=== PATIENT | female | born 1940 | race Caucasian/White ===

== ENCOUNTER 2016-09-28 09:39 | Inpatient (IN) ==
[2016-09-28] MEDS ORDERED: DIPHENOXYLATE/ATROPINE 2.5-0.025 MG TABLET PO STA (10:49)
[2016-09-28] MEDS ORDERED: SODIUM CHLORIDE 0.9% 1,000 ML IV STA (10:49)
[2016-09-28] MEDS ORDERED: PROMETHAZINE 25 MG/1 ML VIAL IM STA (10:54)
--- NOTE | 2016-09-28 11:01 | Emergency Department Note ---
Arrival - Arrival Chief Complaint: Nausea/Vomiting/Diarrhea Stated Complaint: upset stomach,diarrhea,elev BP ED Nursing Triage Note: Pt c/o nausea, vomiting, diarrhea, and abd pain x 1 wk. Mode of Arrival: Wheelchair Limitations: No Limitations Source: Patient, Family, RN Notes Reviewed Time Seen by Provider: 09/28/16 10:17 - History of Present Illness HPI Narrative: - History of Present Illness 76-year-old white female presents to ED with: MD Complaint: Nausea, vomiting, diarrhea, and abdominal pain Onset (ago): 1 week Consistency: Intermittent Location: Left lower quadrant Radiation:[ none] Improves with: N.p.o. Worsens with: Eating and drinking Context: Previous surgery to remove cancer from stomach, partial gastrectomy Associated Symp: Decreased urine output, not keeping down fluids Treatments prior to arrival: None Daughter states they are trying to get patient admitted to the hospital for 3 day stay, in order to have patient admitted to jail. PCP: Dr. Brooks, Dr. 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 PMHx: Hypertension, gastrointestinal cancer, cholecystectomy, EGD, renal failure Allergies/Adverse Reactions: Allergies Allergy/AdvReac Type Severity Reaction Status Date / Time Cortisone Allergy Severe ANAPHYLAXIS Verified 12/18/14 10:16 meperidine [From Demerol] AdvReac Unknown Nausea Verified 05/24/15 14:54 morphine AdvReac Unknown Nausea Verified 12/18/14 10:14 prochlorperazine AdvReac Unknown NUMBNESS Verified 12/18/14 10:17 [From Compazine] Home Medications: Home Medications Medication Instructions Recorded Confirmed Type Famotidine Tab [Pepcid Tab] 40 mg PO BEDTIME 08/17/16 09/29/16 History Gabapentin 300 mg PO DAILY W/LUNCH 08/17/16 09/29/16 History Gabapentin 600 mg PO BID 08/17/16 09/29/16 History Lisinopril/Hydrochlorothiazide 1 each PO DAILY 09/29/16 09/29/16 History [Lisinopril-Hctz 10-12.5 mg Tab] Lubiprostone [Amitiza] 8 mcg PO BID W/MEALS 09/29/16 09/29/16 History Pantoprazole Tab [Protonix Tab] 40 mg PO DAILY 09/29/16 09/29/16 History Potassium Chloride 16 meq PO DAILY 09/29/16 09/29/16 History amLODIPine [Norvasc] 2.5 mg PO DAILY 09/29/16 09/29/16 History clonazePAM [Clonazepam] 1 mg PO BID 09/29/16 09/29/16 History Review of System - Review of System 12 point system: reviewed and no additional remarkable complaints except as stated - Review of System Gastrointestinal: Present: abdominal pain, nausea, vomiting, diarrhea Medical,Surgical,& Family Hx - Medical History Cardio: History of: Hypertension Respiratory: History of: Pneumonia Genitourinary: History of: Recurring Urinary Tract Infections Gastrointestinal: History of: Gastrointestinal Cancer Other: History of: Cancer (hx colon ca (remission x 5 years)) - Surgical History Abdominal Surgeries: Surgical HX of: Appendectomy, Cholecystectomy, EGD - Social History Smoking Status: Former smoker Exam Physical Examination: - General General appearance: alert, in no apparent distress - Head Head exam: Present: atraumatic, normocephalic, normal inspection - Eye Eye exam: Present: normal appearance, PERRL, EOMI - Neck Neck exam: Present: normal inspection, full ROM - Chest Chest inspection: Present: normal inspection, symmetric chest wall rise - Respiratory Respiratory exam: Present: normal lung sounds bilaterally - Cardiovascular Cardiovascular exam: Present: regular rate, normal rhythm, normal heart sounds - Abdominal Exam Abdominal exam: Present: soft, tenderness (LLQ, mild), normal bowel sounds. Absent: distention, guarding, organomegaly, trauma, psoas sign, heel tap sign, Strong's sign, mass - Rectal Exam Rectal exam: Present: deferred - Female exam ED: Present: deferred - Extremities Exam Extremities exam: Present: normal inspection, full ROM. Absent: pedal edema, joint swelling, calf tenderness - Back Exam Back exam: Present: normal inspection, full ROM - Neurological Exam Neurological exam: Present: alert, oriented X3, normal gait - Psychiatric Psychiatric exam: Present: normal affect, normal mood - Skin Skin exam: Present: warm, dry, intact Vital Signs: Vital Signs Temperature 98.4 F 09/29/16 16:00 Pulse Rate 63 09/29/16 16:00 Respiratory Rate 20 09/29/16 16:00 Blood Pressure 149/70 09/29/16 16:00 O2 Sat by Pulse Oximetry 98 09/29/16 16:00 Course Course Narrative: 12;55, Terri with Hospitalist service here to evaluate patient. Will admit. - Consultations Consultation #1: 12:55: Hopsitalist service here to evaluate patient. Will admit. Time: 12:20 (Hospitalist service called (debra) to notify of pt presence and assessment for admission.) Results - Labs CBC & BMP: 09/29/16 04:20 09/29/16 04:20 Lab Results: I have reviewed the patients labs Labs: Laboratory Tests 09/28/16 09/28/16 11:29 11:29 Calcium 6.6 L Magnesium 1.2 L Total Bilirubin < 0.39 AST 19 ALT 16 Alkaline Phosphatase 75 Amylase 36 Lipase 50.0 L Laboratory Tests 09/28/16 11:35 Urine Color Yellow Urine Appearance Clear Urine pH 5.0 Ur Specific [place] 1.006 Urine Protein 100 Urine Glucose (UA) Negative Urine Ketones 5 Urine Blood Small Urine Nitrate Negative Urine Bilirubin Negative Urine Urobilinogen < 2.0 H Urine Leukocytes Negative Urine RBC <1 Urine WBC 2 Ur Squamous Epith Cells Occasional Urine Bacteria Occasional Urine Mucus Occasional Ur Culture Indicated? Not indicated - Diagnostic Findings Procedure: Ultrasound: report reviewed by me (Moderate right-sided hydronephrosis of uncertain etiology. Consider ureteral obstruction. No definite radiopaque renal or ureteral stone was noted on the comparison Ct from August of this year. ) Disposition Clinical Impression: Nausea and vomiting, Hypokalemia, Hypomagnesemia, Neutropenia, Mild dehydration , Renal insufficiency Case discussed with: patient, patient's family Disposition: Still a Patient Condition: Guarded
[2016-09-28] MEDS ORDERED: PROMETHAZINE 25 MG/1 ML VIAL ONE (11:11)
[2016-09-28 11:37] LABS: Basophils % 0.3 % (0.0-0.8); Eosinophils % 0.3 % (0.00-10.9); Hematocrit 35.8 VOL% (35.7-47.0); Hemoglobin 12.2 GM/DL (12.0-16.0); Immature Granulocytes % 0.3 %; Immature Granulocytes Absolute 0.01 #; Lymphocytes % 28.2 % (21.3-54.2); Mean Corpuscular HGB Conc 34.1 GM/DL (32-36); Mean Corpuscular Hemoglobin 32 PG (27-34); Mean Corpuscular Volume 94.5 FL (87-102); Mean Platelet Volume 8.3 FL (9.6-12.0); Monocytes # 0.3 10*3/uL (0.11-0.8); Monocytes % 7.6 % (1.7-12.7); Neutrophils # 2.2 10*3/uL (1.4-7.4); Neutrophils % 63.3 % (38.7-73.9); Platelet Count 178 T/CUMM (130-400); Red Blood Count 3.79 MC/CUMM (3.8-5.5); Red Cell Distribution Width 13.5 % (9.3-17.3); White Blood Count 3.4 T/CUMM (4-12)
[2016-09-28 11:48] LABS: Apearance,Urine CLEAR (Clear); Bacteria,Urine Occasional /HPF (Few); Bilirubin,Urine Negative (Negative); Blood, Urine Small mg/dL (Negative); Glucose,Urine (UA) Negative (Negative); Ketones,Urine 5 mg/dL (Negative); Mucus,Urine Occasional /LPF (Occasional); Nitrite,Urine Negative (Negative); Protein,Urine 100 MG/DL; RBC,Urine <1 /HPF (0-4); Squamous Epithelial Cell,Urine Occasional /HPF (0-10); Urine Color Yellow (Yellow); Urine Specific Gravity 1.006 (1.001-1.035); Urine Urobilinogen < 2.0 EU/DL (0.2-1.0); WBC,Urine 2 /HPF (0-6)
[2016-09-28 12:14] LABS: Alanine Aminotransferase 16 U/L (13-56); Albumin 2.3 G/DL (3.4-5.0); Alkaline Phosphatase 75 U/L (45-117); Amylase 36 U/L (25-115); Aspartate Amino Transferase 19 U/L (0-37); Bilirubin,Total < 0.39 MG/DL (0.2-1.0); Blood Urea Nitrogen 6 MG/DL (7-18); Calcium 6.6 MG/DL (8.5-10.1); Glucose 68 MG/DL (74-106); Osmolality,Calculated 283.7 MOS/KG (273-304); Sodium 145 MMOL/L (136-145); Total Protein 4.6 G/DL (6.4-8.3)
--- NOTE | 2016-09-28 12:14 | Ultrasound Report ---
History: Nausea and vomiting Date: 09/28/2016 Study: Abdominal ultrasound complete Comparison exam: Noncontrast CT abdomen and pelvis August 17, 2016 Real-time ultrasound images are captured and archived. The gallbladder is surgically absent. There is no aneurysm of the abdominal aorta. There is mild scattered atherosclerotic irregularity of the aorta. IVC is patent. There is hepatopedal flow in the portal vein. There are mildly increased echoes throughout the hepatic parenchyma compatible with fatty infiltration of the liver. There is no focal hepatic mass. The pancreas is normal. The left kidney measures 9.2 cm in length and appears normal. The right kidney measures 8.7 cm and is without focal parenchymal mass. There is moderate right-sided hydronephrosis of uncertain etiology. The spleen measures 84 x 47 x 54 mm and is without focal mass. Impression: Moderate right-sided hydronephrosis of uncertain etiology. Consider ureteral obstruction. No definite radiopaque renal or ureteral stone was noted on the comparison CT from August of this year Previous cholecystectomy Fatty infiltration of the liver PROCEDURE INTERPRETED AT [facility] DEPARTMENT OF RADIOLOGY Final Report Signed by: Dr. Bety Ochoa
[2016-09-28 12:16] LABS: Potassium 2.5 MMOL/L (3.5-5.1)
[2016-09-28] MEDS ORDERED: MAGNESIUM SULF RIDER 4 GM in PREMIX 1 EACH IV PRN (13:05)
--- NOTE | 2016-09-28 13:11 | Hospitalist History & Physical ---
Assessment and Plan (1) Nausea and vomiting Status: Acute Assessment and plan: We will keep NPO, hydrate, antiemetics as needed. Current Visit: No (2) Renal insufficiency Status: Acute Assessment and plan: This is likely secondary to volume depletion; we will hydrate and reassess in AM. Current Visit: No (3) Mild dehydration Status: Acute Current Visit: No (4) Hypokalemia Status: Acute Assessment and plan: Potassium 2.5 at admission; likely related to volume depletion secondary to nausea and vomiting; will correct and re-check in AM. Current Visit: No (5) Hypomagnesemia Status: Acute Assessment and plan: Will replace as needed. Current Visit: No (6) Gastric malignant neoplasm Status: Acute Assessment and plan: The patient is a poor historian. Family is at bedside; they report they she is followed by Dr. Brooks. We will consult to assist in the management during the clinical encounter. Current Visit: No (7) Neutropenia Status: Acute Assessment and plan: WBC 3.4 at admission; not sure of her baseline. We will consult oncology to evaluate and manage. Current Visit: Yes History of Present Illness Chief complaint: nausea/vomiting/abdominal pain x1 week History of present illness: This is a very unfortunate 76 year old woman that presented to the [facility] at [facility] with a chief compliant of nausea, vomiting, diarrhea, and abdominal pain x 1 week. The patient has a very complex medical history significant for hypertension and malignant carcinoma of the stomach. She has a surgical history of cholecystectomy, hysterectomy, partial gastrectomy, and appendectomy. She reports an onset of the above symptoms on last week with gradual worsening of symptoms. The patient was assessed and labs were obtained. She was found to he grossly hypokalemic with a potassium level noted at 2.5. She was also found to be neutropenic with a white blood cell count noted 3.4. An ultrasound of the abdomen was obtained which suggested moderate right sided hydronephrosis, with etiology unknown and that a urethral obstruction should be considered. After discussion with JUAN ALBERTO Wright and Dr. Boles, the patient will be admitted for continuation of care. We will consult Dr. Brooks, patient is known to him. Home Medications Medication Instructions Recorded Confirmed Type Famotidine Tab [Pepcid Tab] 40 mg PO BEDTIME 08/17/16 08/18/16 History Gabapentin 300 mg PO BEDTIME 08/17/16 08/18/16 History Gabapentin 600 mg PO QAM 08/17/16 08/18/16 History Azithromycin Inj [Zithromax Inj] 500 mg PO Q24H #3 vial 08/19/16 Rx Magnesium Chloride [Slow Mag] 64 mg PO BID tablet 08/19/16 Rx Allergies Allergy/AdvReac Type Severity Reaction Status Date / Time Cortisone Allergy Severe ANAPHYLAXIS Verified 12/18/14 10:16 meperidine [From Demerol] AdvReac Unknown Nausea Verified 05/24/15 14:54 morphine AdvReac Unknown Nausea Verified 12/18/14 10:14 prochlorperazine AdvReac Unknown NUMBNESS Verified 12/18/14 10:17 [From Compazine] Medical,Surgical,& Family Hx - Medical History Cardio: History of: Hypertension Respiratory: History of: Pneumonia Genitourinary: History of: Recurring Urinary Tract Infections Gastrointestinal: History of: Gastrointestinal Cancer Other: History of: Cancer (hx colon ca (remission x 5 years)) - Surgical History Cardiac Surgeries: Patient Denies: Cardiac Catheterization Abdominal Surgeries: Surgical HX of: Appendectomy, Cholecystectomy, EGD Orthopedic Surgeries: Patient denies;: Orthopedic Surgery - Social History Smoking Status: Former smoker - Constitutional Constitutional: Absent: chills, lethargy, malaise, night sweats - Gastrointestinal Gastrointestinal: Present: abdominal pain, cramping, diarrhea, nausea, vomiting Exam - Constitutional Vitals: Period Temp Pulse Resp BP Sys/Franklin Pulse Ox Last 24 Hr 98.2 F 66-83 18-18 125-143/74-83 98 General appearance: normal weight, mild distress - Head Head exam: Present: normal inspection, normocephalic, atraumatic - Eye Eye exam: Present: EOMI. Absent: conjunctival injection, nystagmus Pupils: Present: DENIZ, normal accommodation - ENT ENT exam: Present: normal exam, normal external ear exam, normal oropharynx - Neck Neck exam: Present: normal inspection. Absent: lymphadenopathy, meningismus, tenderness, thyromegaly - Respiratory Respiratory exam: Present: clear to auscultation bilaterally. Absent: rales, rhonchi, stridor, wheezes - Cardiovascular Cardiovascular exam: Present: regular rate and rhythm. Absent: carotid bruit, diastolic murmur, gallop, JVD, rubs - GI/Abdominal GI/Abdominal exam: Present: hypoactive bowel sounds, tenderness (LLQ tenderness) , soft, other. Absent: distended, firm, guarding - Extremities Exam Extremities exam: Present: normal inspection, normal capillary refill, full ROM. Absent: edema - Back Exam Back exam: Present: normal inspection - Neurological Exam Neurological exam: Present: alert, oriented X3, CN II-XII intact - Psychiatric Psychiatric exam: Present: normal affect, normal mood - Skin Skin exam: Present: normal color, pallor Results - Labs CBC & BMP: 09/28/16 11:29 09/28/16 11:29 Lab Results: I have reviewed the past 24 hour labs Quality Measures - VTE Deep Vein Thrombosis/Pulmonary Embolism Present on Admission: No
[2016-09-28] MEDS: SODIUM CHLORIDE 0.9% 1,000 ML IV SCH (14:07)
[2016-09-28] MEDS: ONDANSETRON 4 MG/2 ML VIAL IV PRN (15:28)
[2016-09-28] MEDS: metroNIDAZOLE INJ 500 MG in PREMIX 1 EACH IV SCH ×3 (15:30→22:53)
[2016-09-28] MEDS: POTASSIUM CHLORIDE RIDER 10 MEQ in PREMIX 1 EACH IV PRN ×5 (16:33→22:41)
[2016-09-28] MEDS: PROMETHAZINE 25 MG/1 ML VIAL IM PRN (21:56)
[2016-09-28] MEDS: MAGNESIUM SULF RIDER 2 GM in PREMIX 1 EACH IV PRN (22:09)
[2016-09-29] MEDS: POTASSIUM CHLORIDE RIDER 10 MEQ in PREMIX 1 EACH IV PRN (00:11)
[2016-09-29] MEDS: MAGNESIUM SULF RIDER 2 GM in PREMIX 1 EACH IV PRN (00:13)
[2016-09-29] MEDS: SODIUM CHLORIDE 0.9% 1,000 ML IV SCH (00:18)
[2016-09-29] MEDS: metroNIDAZOLE INJ 500 MG in PREMIX 1 EACH IV SCH ×4 (04:14→21:59)
[2016-09-29 04:36] LABS: Basophils % 0.4 % (0.0-0.8); Eosinophils % 1.1 % (0.00-10.9); Hematocrit 31.4 VOL% (35.7-47.0); Hemoglobin 10.9 GM/DL (12.0-16.0); Lymphocytes % 35.6 % (21.3-54.2); Mean Corpuscular HGB Conc 34.7 GM/DL (32-36); Mean Corpuscular Hemoglobin 34 PG (27-34); Mean Corpuscular Volume 97.5 FL (87-102); Mean Platelet Volume 8.9 FL (9.6-12.0); Monocytes # 0.3 10*3/uL (0.11-0.8); Monocytes % 9.4 % (1.7-12.7); Neutrophils # 1.5 10*3/uL (1.4-7.4); Neutrophils % 53.5 % (38.7-73.9); Platelet Count 140 T/CUMM (130-400); Red Blood Count 3.22 MC/CUMM (3.8-5.5); Red Cell Distribution Width 14.3 % (9.3-17.3); White Blood Count 2.8 T/CUMM (4-12)
[2016-09-29 05:11] LABS: Alanine Aminotransferase 14 U/L (13-56); Albumin 2.3 G/DL (3.4-5.0); Alkaline Phosphatase 76 U/L (45-117); Aspartate Amino Transferase 18 U/L (0-37); Bilirubin,Total < 0.39 MG/DL (0.2-1.0); Blood Urea Nitrogen 6 MG/DL (7-18); Calcium 7.4 MG/DL (8.5-10.1); Glucose 60 MG/DL (74-106); Magnesium 3.1 MG/DL (1.8-2.4); Osmolality,Calculated 283.7 MOS/KG (273-304); Potassium 4.2 MMOL/L (3.5-5.1); Sodium 145 MMOL/L (136-145); Total Protein 4.5 G/DL (6.4-8.3)
[2016-09-29] MEDS: DEXTROSE 5% NACL 0.45% 1,000 ML IV SCH ×2 (06:00→18:53)
[2016-09-29] MEDS: PANTOPRAZOLE 40 MG VIAL IV SCH (08:47)
[2016-09-29] MEDS: PROMETHAZINE 25 MG/1 ML VIAL IM PRN ×3 (09:10→22:04)
--- NOTE | 2016-09-29 13:54 | Hospitalist Progress Note ---
Assessment and Plan - Time spent with patient Time spent with patient: Greater than 30 minutes (1) Nausea Status: Acute Assessment and plan: Will consult GI. Current Visit: Yes (2) Gastric malignant neoplasm Status: Acute Assessment and plan: Hsitory of. Seen by Oncology and follow up scans have been negative for recurrence. Current Visit: No Hospitalist: Subjective Interval history: Ms Torres reports regurgitation of her food and persistent nausea, no vomiting. Exam - Constitutional Vitals: Period Temp Pulse Resp BP Sys/Franklin Pulse Ox Last 24 Hr 97.3 F-98.7 F 55-88 16-20 105-147/59-73 97-99 General appearance: no acute distress - Head Head exam: Present: normocephalic, atraumatic - Eye Eye exam: Present: EOMI Pupils: Present: DENIZ - ENT ENT exam: Present: normal exam - Neck Neck exam: Present: normal inspection - Respiratory Respiratory exam: Present: clear to auscultation bilaterally. Absent: rhonchi, wheezes - Cardiovascular Cardiovascular exam: Present: regular rate and rhythm. Absent: gallop, rubs, systolic murmur - GI/Abdominal GI/Abdominal exam: Present: normal bowel sounds, soft. Absent: distended, firm , guarding, tenderness, rebound - Extremities Exam Extremities exam: Present: normal inspection. Absent: calf tenderness, edema Results - Labs CBC & BMP: 09/29/16 04:20 09/29/16 04:20 Lab Results: I have reviewed the past 24 hour labs Quality Measures - VTE Deep Vein Thrombosis/Pulmonary Embolism Present on Admission: No
[2016-09-29] MEDS: ONDANSETRON 4 MG/2 ML VIAL IV PRN (14:47)
--- NOTE | 2016-09-29 14:51 | Gastrointestinal Consult Note ---
Assessment and Plan (1) Nausea and vomiting Status: Acute Assessment and plan: 16-10 day history of intractable nausea and vomiting with history of gastric cancer and partial gastrectomy in 2011. Hx of cyclic episodes of N/V with this being most severe. US results noted. Last EGD 10/2015. Plan and addendum to follow by Dr Ochoa Current Visit: No History of Present Illness Chief complaint: Nausea and vomiting History of present illness: Ms. Torres is a 76 year old female was admitted to the hospital with onset of nausea, vomiting, diarrhea and abdominal pain. Pt is a fair historian and has difficulty recalling details however information is obtained from patient and chart review. Pt has a history of gastric cancer which was diagnosed in 2011 and was surgically resected at [place] per patient. She then transferred her care here to [place] and is now followed by Dr Brooks. Since her surgery, she has cyclic episodes of nausea and vomiting. She states she never knows what will bring it on and nothing seems to help this. She has had multiple episodes of this in the past and states that most of these she can treat at home however this was the most severe she has had before. Patient states that this began approximately a week and a half ago and has had intractable nausea and vomiting since onset. She states that she has not been able to eat anything but 1 or 2 crackers and sips of Sprite at a time since onset. She states that she has had multiple episodes of vomiting as well as regurgitation throughout the day and night. She also complains of some left lower quadrant abdominal pain which she states is new. She states that the nausea and vomiting feels the same as episodes in the past but just more severe. She states she has not had the LLQ pain in the past. Patient states that she has had some diarrhea since onset however she does have varying episodes of this at times along with chronic constipation. She denies any melena or hematochezia. Denies any coffee-ground or hematemesis. She denies any changes in her weight, fever or chills. She has recently had a follow-up with Dr. Brooks in the last 6 weeks and to this date has been cancer free. On admission she was noted to be hypokalemic with potassium of 2.5 which is now corrected. Albumin is 2.3 and total protein is 4.5. She had an abdominal ultrasound on admission which showed fatty infiltration of the liver with no focal masses seen. Also noted a moderate right-sided hydronephrosis. Last EGD noted in October 2015 with no acute findings by Dr Rojo (correctional case records supervisor for Dr Ochoa). Patient states that she feels she is no longer able to care for herself at home and at this time family is considering detention placement upon discharge. Home Medications Medication Instructions Recorded Confirmed Type Famotidine Tab [Pepcid Tab] 40 mg PO BEDTIME 08/17/16 09/29/16 History Gabapentin 300 mg PO DAILY W/LUNCH 08/17/16 09/29/16 History Gabapentin 600 mg PO BID 08/17/16 09/29/16 History Lisinopril/Hydrochlorothiazide 1 each PO DAILY 09/29/16 09/29/16 History [Lisinopril-Hctz 10-12.5 mg Tab] Lubiprostone [Amitiza] 8 mcg PO BID W/MEALS 09/29/16 09/29/16 History Pantoprazole Tab [Protonix Tab] 40 mg PO DAILY 09/29/16 09/29/16 History Potassium Chloride 16 meq PO DAILY 09/29/16 09/29/16 History amLODIPine [Norvasc] 2.5 mg PO DAILY 09/29/16 09/29/16 History clonazePAM [Clonazepam] 1 mg PO BID 09/29/16 09/29/16 History Allergies Allergy/AdvReac Type Severity Reaction Status Date / Time Cortisone Allergy Severe ANAPHYLAXIS Verified 12/18/14 10:16 meperidine [From Demerol] AdvReac Unknown Nausea Verified 05/24/15 14:54 morphine AdvReac Unknown Nausea Verified 12/18/14 10:14 prochlorperazine AdvReac Unknown NUMBNESS Verified 12/18/14 10:17 [From Compazine] Medical,Surgical,& Family Hx - Medical History Cardio: History of: Hypertension Psychological: History of: Anxiety Disorders, Depression Respiratory: History of: Pneumonia Genitourinary: History of: Recurring Urinary Tract Infections Gastrointestinal: History of: Gastrointestinal Cancer Other: History of: Cancer (hx colon ca (remission x 5 years)) - Surgical History Cardiac Surgeries: Patient Denies: Cardiac Catheterization HEENT Surgeries: Surgical HX of: Tonsilectomy & Adenoidectomy Abdominal Surgeries: Surgical HX of: Appendectomy, Cholecystectomy, EGD Orthopedic Surgeries: Patient denies;: Orthopedic Surgery - Family History Family History: Reports;: Family Cancer (father had brain CA, aunts ?), Family Hypertension (Mother) - Social History Smoking Status: Former smoker Frequency of Alcohol Use: None Type of Drug Use: None 12 point system: reviewed and no additional remarkable complaints except as stated - Constitutional Constitutional: Present: as per HPI - EENT Eyes: Present: as per HPI Ears: Present: as per HPI Nose, mouth and throat: Present: as per HPI - Cardiovascular Cardiovascular: Present: as per HPI - Respiratory Respiratory: Present: as per HPI - Gastrointestinal Gastrointestinal: Present: as per HPI, abdominal pain, constipation, diarrhea, nausea, vomiting - Genitourinary Genitourinary: Present: as per HPI - Musculoskeletal Musculoskeletal: Present: as per HPI - Neurological Neurological: Present: as per HPI - Psychiatric Psychiatric: Present: as per HPI - Endocrine Endocrine: Present: as per HPI - Hematologic/Lymphatic Hematologic/Lymphatic: Present: as per HPI Exam - Constitutional Vitals: Period Temp Pulse Resp BP Sys/Franklin Pulse Ox Last 24 Hr 97.3 F-98.7 F 55-88 16-20 105-137/59-73 97-99 General appearance: no acute distress, under weight - Head Head exam: Present: normal inspection, normocephalic - Eye Eye exam: Present: other (lids and conjunctiva unremarkable). Absent: scleral icterus - ENT ENT exam: Present: normal exam, normal oropharynx - Neck Neck exam: Present: normal inspection - Respiratory Respiratory exam: Present: clear to auscultation bilaterally. Absent: rales, rhonchi, wheezes - Cardiovascular Cardiovascular exam: Present: regular rate and rhythm. Absent: diastolic murmur , JVD, systolic murmur - GI/Abdominal GI/Abdominal exam: Present: normal bowel sounds, soft. Absent: ascites, distended, mass, organomegaly, tenderness - Extremities Exam Extremities exam: Present: normal inspection, full ROM - Back Exam Back exam: Present: normal inspection - Neurological Exam Neurological exam: Present: alert, oriented X3 - Psychiatric Psychiatric exam: Present: normal affect, normal mood - Skin Skin exam: Present: normal color, warm, dry Results - Labs CBC & BMP: 09/29/16 04:20 09/29/16 04:20 Lab Results: I have reviewed the past 24 hour labs - Diagnostic Findings Procedure: Ultrasound: report reviewed by me Quality Measures - VTE Deep Vein Thrombosis/Pulmonary Embolism Present on Admission: No
--- NOTE | 2016-09-29 15:18 | Case Mgmt Physician Query Form ---
TB Signs and Symptoms Screening ([place]) INSTRUCTIONS: To be completed annually on residents/staff with a significant Tuberculin Skin Test (TST) upon admission/hire or a prior significant TST. To be completed on all staff at hire. Please respond to each listed symptom with an (X) in either the "YES" or "NO" box. Do you currently have any of the following symptoms: YES NO ( ) ( x) A cough If yes, is it: ( ) Productive ( ) Non- productive ( ) (x ) Hemoptysis (spitting up blood) ( ) (x ) Chest pains ( ) ( x) Weight Loss ( ) (x ) Fever ( ) (x ) Night Sweats ( ) (x ) Weakness ( ) (x) Loss of Appetite ( ) (x ) Difficulty Breathing If you answered YES" to any of the above questions, how long have symptoms been present? Comments: [email or web address]
[2016-09-30] MEDS: metroNIDAZOLE INJ 500 MG in PREMIX 1 EACH IV SCH ×4 (03:35→21:21)
[2016-09-30] MEDS: DEXTROSE 5% NACL 0.45% 1,000 ML IV SCH ×3 (03:35→17:47)
[2016-09-30 07:37] LABS: Calcium 7.9 MG/DL (8.5-10.1); Magnesium 1.9 MG/DL (1.8-2.4); Osmolality,Calculated 287.7 MOS/KG (273-304); Potassium 3.6 MMOL/L (3.5-5.1)
[2016-09-30] MEDS ORDERED: TUBERCULIN SKIN TEST 0.1 ML SYRINGE INTRADERM ONE ×2 (07:49→10:00)
--- NOTE | 2016-09-30 08:21 | Oncology Progress Note ---
Oncology Subjective PN Interval history: Patient seen and examined yesterday and case discussed with hospitalist attending. Recommendations are for EGD given her symptoms of nausea vomiting which are not acute. Gastric cancer 2013 with partial gastrectomy. I believe this was performed in [facility]. I have followed her with observation only for several years. I am unaware of any recent EGDs. She did have a CT of the chest abdomen pelvis 2 months ago with no obvious malignancy noted. Exam - Constitutional Vitals: Period Temp Pulse Resp BP Sys/Franklin Pulse Ox Last 24 Hr 97.8 F-98.7 F 63-74 18-20 126-149/67-73 97-99 Results - Labs CBC & BMP: 09/29/16 04:20 09/30/16 06:24 Quality Measures - VTE Deep Vein Thrombosis/Pulmonary Embolism Present on Admission: No
[2016-09-30] MEDS: PANTOPRAZOLE 40 MG VIAL IV SCH (09:04)
--- NOTE | 2016-09-30 10:25 | Hospitalist Progress Note ---
Assessment and Plan - Time spent with patient Time spent with patient: Greater than 30 minutes (1) Nausea Status: Acute Assessment and plan: Endoscopy today. Current Visit: Yes (2) Gastric malignant neoplasm Status: Acute Assessment and plan: Hsitory of. Seen by Oncology and follow up scans have been negative for recurrence. Current Visit: No Hospitalist: Subjective Interval history: No complaints this morning. Scheduled for an endoscopy. Exam - Constitutional Vitals: Period Temp Pulse Resp BP Sys/Franklin Pulse Ox Last 24 Hr 97.8 F-98.7 F 63-74 18-20 126-162/67-86 97-99 General appearance: normal weight, no acute distress - Head Head exam: Present: normocephalic, atraumatic - Eye Eye exam: Present: EOMI Pupils: Present: DENIZ - ENT ENT exam: Present: normal exam - Neck Neck exam: Present: normal inspection - Respiratory Respiratory exam: Present: clear to auscultation bilaterally. Absent: rhonchi, wheezes - Cardiovascular Cardiovascular exam: Present: regular rate and rhythm. Absent: gallop, rubs, systolic murmur - GI/Abdominal GI/Abdominal exam: Present: normal bowel sounds, soft. Absent: distended, firm , guarding, tenderness, rebound - Extremities Exam Extremities exam: Present: normal inspection. Absent: calf tenderness, edema Results - Labs CBC & BMP: 09/29/16 04:20 09/30/16 06:24 Lab Results: I have reviewed the past 24 hour labs Quality Measures - VTE Deep Vein Thrombosis/Pulmonary Embolism Present on Admission: No
--- NOTE | 2016-09-30 13:13 | History and Physical Update ---
History and Physical Update - History and Physical H&P was reviewed, the patient examined and there: are no changes in the patients condition since last H&P was completed. - Physical Exam Mental Status: alert and oriented Heart: regular rate and rhythm Lung: clear to auscultation Abdomen: within normal limits Vitals: within normal limits
[2016-09-30] MEDS ORDERED: LIDOCAINE 1% 5 ML VIAL ONE (13:14)
[2016-09-30] MEDS ORDERED: PROPOFOL 200 MG/20 ML VIAL IV ONE (13:14)
--- NOTE | 2016-09-30 13:24 | Operative Note ---
Date of procedure: 09/30/16 Pre-op diagnosis: History of gastric cancer, recent increased nausea/vomiting Procedure: Procedure: Esophagogastroduodenoscopy Brief clinical abstract: Patient is a 76-year-old female with history of gastric cancer resected 5 years ago and has had no documented recurrence of disease. She has had chronic intermittent nausea/vomiting and is admitted with increased nausea/vomiting and weakness over the last few weeks. She has progressively lost weight gradually since her surgery. Indication for procedure: History of gastric cancer, persistent nausea/vomiting Endoscopic findings:[After informed consent was obtained, the patient was placed in the left lateral decubitus position. The gastroscope was inserted in the upper esophagus under direct vision with no resistance encountered. Esophageal mucosa appeared normal with squamocolumnar junction sharply demarcated above a small 1-2 cm hiatal hernia. The endoscope was advanced in the stomach which was carefully examined including retroflexed view of the cardia and fundus. 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 No abnormalities were noted within the residual stomach. Afferent and efferent limbs of small bowel were examined 10-15 cm beyond the anastomosis with no abnormality seen. The endoscope was removed. Patient appeared to tolerate the procedure well. Impression: #1 small hiatal hernia #2 previous partial gastrectomy with Billroth II anatomy #3 no source for nausea/vomiting seen. Recommendations: Check cortisol level in the morning to screen adrenal function. Anesthesia: MAC Surgeon / Physician: Eren Ochoa Estimated blood loss: none Specimens: none sent Condition: stable Disposition: post procedure unit Results - Labs CBC & BMP: 09/29/16 04:20 09/30/16 06:24 Discharge Plan - Discharge Medications No Action Famotidine Tab [Pepcid Tab] 40 mg PO BEDTIME Potassium Chloride 16 meq PO DAILY Lubiprostone [Amitiza] 8 mcg PO BID W/MEALS Lisinopril/Hydrochlorothiazide [Lisinopril-Hctz 10-12.5 mg Tab] 1 each PO DAILY clonazePAM [Clonazepam] 1 mg PO BID amLODIPine [Norvasc] 2.5 mg PO DAILY Pantoprazole Tab [Protonix Tab] 40 mg PO DAILY Gabapentin 600 mg PO BID Gabapentin 300 mg PO DAILY W/LUNCH - Follow Up or Referral - Forms/Instructions
--- NOTE | 2016-09-30 13:27 | Anesthesia Post-Op ---
Anesthesia Post OP - Post Ansesthetic Evaluation Patient seen in post op: Yes Resp: within normal limits CV: within normal limits Mental: within normal limits Temp: within normal limits Emer-[id number]-[id number]: within normal limits Nausea and Vomiting: within normal limits Pain: within normal limits
--- NOTE | 2016-09-30 14:34 | XRay Report ---
Exam: XR chest 2V Date: 09/30/2016 10:25 AM Indication: Abdominal pain Comparison: 08/18/2016 Findings:: A left subclavian port catheter is present. Chronic pleural thickening and scarring in the right base. Prior cholecystectomy clips are present. No obvious infiltrate or effusion. Degenerative change present thoracic spine with calcified nodes in the perihilar regions. Impression: 1. Stable position a left port catheter 2. Chronic pleural thickening and scarring right base 3. Prior cholecystectomy PROCEDURE INTERPRETED AT [facility] DEPARTMENT OF RADIOLOGY Final Report Signed by: Dr. Eren Burciaga
[2016-10-01] MEDS ORDERED: MORPHINE 2 MG/1 ML SYRINGE IV PRN (02:03)
[2016-10-01] MEDS: ONDANSETRON 4 MG/2 ML VIAL IV PRN (02:30)
[2016-10-01] MEDS: metroNIDAZOLE INJ 500 MG in PREMIX 1 EACH IV SCH ×4 (03:21→21:02)
[2016-10-01] MEDS: DEXTROSE 5% NACL 0.45% 1,000 ML IV SCH ×2 (06:00→18:15)
[2016-10-01] MEDS: PANTOPRAZOLE 40 MG VIAL IV SCH (09:06)
--- NOTE | 2016-10-01 10:54 | Gastrointestinal Progress Note ---
Assessment and Plan (1) Nausea and vomiting Status: Acute Assessment and plan: 10/01-nausea vomiting improved. EGD findings noted. Cortisol level unremarkable. Start clear liquid diet. Plan an addendum to follow Dr. Ochoa. 09/29-10 day history of intractable nausea and vomiting with history of gastric cancer and partial gastrectomy in 2011. Hx of cyclic episodes of N/V with this being most severe. US results noted. Last EGD 10/2015. Plan and addendum to follow by Dr Ochoa Current Visit: Yes Gastroenterology - PN: Subj Interval history: CC: Nausea and vomiting Patient is seen awake alert sitting up in bed. States she is feeling a little better this morning. She is currently being held n.p.o. however states she feels like she could try a little clear liquid diet. Denies any nausea or vomiting at this time. Denies any abdominal pain. EGD findings noted. Cortisol level was unremarkable this morning. Abdomen soft, mild tenderness. States she still has some soreness to her left lower quadrant but this is improved. Patient states upon discharge she is going to move to [facility] for jail placement there and she will be under the care of a physician who initially diagnosed her with gastric cancer 5 years ago. ROS: Patient denies shortness of breath or chest pain Exam (Progress Note) - Constitutional Vitals: Period Temp Pulse Resp BP Sys/Franklin Pulse Ox Last 24 Hr 98.2 F-99.1 F 68-79 17-24 132-157/72-93 96-100 General appearance: normal weight, no acute distress - Head Head exam: Present: normal inspection, normocephalic - Eye Eye exam: Present: other (Lids objective unremarkable). Absent: scleral icterus - ENT ENT exam: Present: normal exam, normal oropharynx - Neck Neck exam: Present: normal inspection - Respiratory Respiratory exam: Present: clear to auscultation bilaterally. Absent: rales, rhonchi, wheezes - Cardiovascular Cardiovascular exam: Present: regular rate and rhythm. Absent: diastolic murmur , JVD, systolic murmur - GI/Abdominal GI/Abdominal exam: Present: normal bowel sounds, soft. Absent: ascites, distended, mass, organomegaly, tenderness - Extremities Exam Extremities exam: Present: normal inspection, full ROM - Back Exam Back exam: Present: normal inspection - Neurological Exam Neurological exam: Present: alert, oriented X3 - Psychiatric Psychiatric exam: Present: normal affect, normal mood - Skin Skin exam: Present: normal color, warm, dry Results - Labs CBC & BMP: 09/29/16 04:20 09/30/16 06:24 Lab Results: I have reviewed the past 24 hour labs
[2016-10-01] MEDS ORDERED: amLODIPine 5 MG TABLET PO SCH (12:00)
[2016-10-01] MEDS: GABAPENTIN 300 MG CAPSULE PO SCH (12:34)
--- NOTE | 2016-10-01 13:16 | Hospitalist Progress Note ---
Assessment and Plan - Time spent with patient Time spent with patient: Greater than 30 minutes (1) Nausea Status: Acute Assessment and plan: Endoscopy unremarkable. Current Visit: Yes (2) Gastric malignant neoplasm Status: Acute Assessment and plan: No active issues. Current Visit: No Hospitalist: Subjective Interval history: No complaints or overnight events. Currently awaiting placement in a NH. Exam - Constitutional Vitals: Period Temp Pulse Resp BP Sys/Franklin Pulse Ox Last 24 Hr 98.2 F-99.1 F 68-79 17-24 132-157/72-92 96-100 General appearance: normal weight, no acute distress - Head Head exam: Present: normocephalic, atraumatic - Eye Eye exam: Present: EOMI Pupils: Present: DENIZ - ENT ENT exam: Present: normal exam - Neck Neck exam: Present: normal inspection - Respiratory Respiratory exam: Present: clear to auscultation bilaterally. Absent: rhonchi, wheezes - Cardiovascular Cardiovascular exam: Present: regular rate and rhythm. Absent: gallop, rubs, systolic murmur - GI/Abdominal GI/Abdominal exam: Present: normal bowel sounds, soft. Absent: distended, firm , guarding, tenderness, rebound - Extremities Exam Extremities exam: Present: normal inspection. Absent: calf tenderness, edema Results - Labs CBC & BMP: 09/29/16 04:20 09/30/16 06:24 Lab Results: I have reviewed the past 24 hour labs Quality Measures - VTE Deep Vein Thrombosis/Pulmonary Embolism Present on Admission: No
[2016-10-01] MEDS: amLODIPine 2.5 MG TABLET PO SCH (13:31)
[2016-10-01] MEDS: clonazePAM 0.5 MG TABLET PO SCH ×2 (14:15→21:02)
--- NOTE | 2016-10-01 14:22 | Physician Query Form ---
CLICK EDIT DOCUMENT TO SELECT QUERY ANSWER --> OK --> SIGN Edie Shen RN Clinical Program Support Clerk W) [phone] (f) [phone] [email or web address]: Make your selection(s) from the choices in EACH section by typing an "x" and enter comments in the comment section. Please use your independent medical judgment in providing your response. This request does not imply that any particular answer is desired or expected. 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 ( x) Malnutrition ( ) mild ( ) moderate (x ) severe ( ) Protein calorie malnutrition ( ) mild ( ) moderate ( ) severe ( ) Emaciation due to malnutrition ( ) Nutritional marasmus ( ) Cachexia ( ) No nutritional deficiency ( ) Other, please specify: ( ) Clinically unable to determine Mild Malnutrition (BMI < 18.5, % Normal Body Weight 85-95%) Moderate Malnutrition (BMI < 17, % Normal Body Weight 75-85%) Severe Malnutrition (BMI < 16, % Normal Body Weight < 75%) Source: [place] COMMENTS: PLEASE ALSO DOCUMENT RESPONSE IN PROGRESS NOTES AND/OR DISCHARGE SUMMARY Use of terms such as suspected, likely, or probable (associated with a specific diagnosis that is being evaluated, monitored, or treated as if it exists) are acceptable and can be restated in the discharge summary if not ruled out. MTDD
[2016-10-01] MEDS: POLYETHYLENE GLYCOL POWDER 17 GM PACK PO SCH (18:33)
[2016-10-01] MEDS: GABAPENTIN 600 MG TABLET PO SCH (21:02)
[2016-10-01] MEDS: HEPARIN LOCK FLUSH 500 UNIT/5 ML SYRINGE IV SCH (21:30)
[2016-10-01] MEDS: ACETAMINOPHEN 325 MG TABLET PO PRN (23:53)
[2016-10-02] MEDS: metroNIDAZOLE INJ 500 MG in PREMIX 1 EACH IV SCH ×3 (03:26→16:16)
[2016-10-02] MEDS: DEXTROSE 5% NACL 0.45% 1,000 ML IV SCH ×2 (06:39→16:17)
[2016-10-02] MEDS: PANTOPRAZOLE 40 MG VIAL IV SCH (08:10)
[2016-10-02] MEDS: amLODIPine 2.5 MG TABLET PO SCH (08:10)
[2016-10-02] MEDS: GABAPENTIN 600 MG TABLET PO SCH ×2 (08:10→22:01)
[2016-10-02] MEDS: clonazePAM 0.5 MG TABLET PO SCH ×2 (08:10→22:01)
[2016-10-02] MEDS: POLYETHYLENE GLYCOL POWDER 17 GM PACK PO SCH (08:10)
[2016-10-02 09:00] LABS: Calcium 7.2 MG/DL (8.5-10.1); Magnesium 1.2 MG/DL (1.8-2.4); Osmolality,Calculated 288.4 MOS/KG (273-304); Potassium 3.3 MMOL/L (3.5-5.1)
[2016-10-02] MEDS ORDERED: HEPARIN LOCK FLUSH 500 UNIT/5 ML SYRINGE IV PRN (10:04)
--- NOTE | 2016-10-02 10:22 | Gastrointestinal Progress Note ---
Assessment and Plan (1) Nausea and vomiting Status: Acute Assessment and plan: 10/02-no reports of nausea or vomiting. Denies abdominal pain. Reports diarrhea following ingestion of food. Requesting to advance to soft diet. Plan an addendum to followed by Dr. Ochoa. 10/01-nausea vomiting improved. EGD findings noted. Cortisol level unremarkable. Start clear liquid diet. Plan an addendum to follow Dr. Ochoa. 09/29-10 day history of intractable nausea and vomiting with history of gastric cancer and partial gastrectomy in 2011. Hx of cyclic episodes of N/V with this being most severe. US results noted. Last EGD 10/2015. Plan and addendum to follow by Dr Ochoa Current Visit: Yes Gastroenterology - PN: Subj Interval history: CC: Nausea vomiting Patient is seen awake alert sitting up in bed. States she is feeling even better today. He is tolerating clear liquid diet without any complaints of nausea vomiting at present time. She is complaining of some diarrhea shortly after she eats but she states that this is very tolerable at present time. Abdomen soft, nontender. She is requesting to advance her diet at this time is specifically requesting food items for lunch. ROS: Denies shortness of breath or chest pain Exam (Progress Note) - Constitutional Vitals: Period Temp Pulse Resp BP Sys/Franklin Pulse Ox Last 24 Hr 98.1 F-99.1 F 60-80 16-20 107-183/63-100 94-100 - Other Additional findings: General appearance: normal weight, no acute distress - Head Head exam: Present: normal inspection, normocephalic - Eye Eye exam: Present: other (Lids objective unremarkable). Absent: scleral icterus - ENT ENT exam: Present: normal exam, normal oropharynx - Neck Neck exam: Present: normal inspection - Respiratory Respiratory exam: Present: clear to auscultation bilaterally. Absent: rales, rhonchi, wheezes - Cardiovascular Cardiovascular exam: Present: regular rate and rhythm. Absent: diastolic murmur , JVD, systolic murmur - GI/Abdominal GI/Abdominal exam: Present: normal bowel sounds, soft. Absent: ascites, distended, mass, organomegaly, tenderness - Extremities Exam Extremities exam: Present: normal inspection, full ROM - Back Exam Back exam: Present: normal inspection - Neurological Exam Neurological exam: Present: alert, oriented X3 - Psychiatric Psychiatric exam: Present: normal affect, normal mood - Skin Skin exam: Present: normal color, warm, dry Results - Labs CBC & BMP: 09/29/16 04:20 10/02/16 07:50 Lab Results: I have reviewed the past 24 hour labs
[2016-10-02] MEDS: ACETAMINOPHEN 325 MG TABLET PO PRN (10:53)
[2016-10-02] MEDS: HEPARIN LOCK FLUSH 500 UNIT/5 ML SYRINGE IV SCH (10:53)
[2016-10-02] MEDS: POTASSIUM CHLORIDE RIDER 20 MEQ in PREMIX 1 EACH IV PRN ×4 (10:53→21:39)
[2016-10-02] MEDS: GABAPENTIN 300 MG CAPSULE PO SCH (11:22)
[2016-10-02] MEDS ORDERED: MAGNESIUM SULF RIDER 4 GM in PREMIX 1 EACH IV ONE (14:52)
--- NOTE | 2016-10-02 14:52 | Hospitalist Progress Note ---
Assessment and Plan - Time spent with patient Time spent with patient: Greater than 30 minutes (1) Nausea Status: Acute Assessment and plan: Endoscopy unremarkable. Improving. Current Visit: Yes (2) Gastric malignant neoplasm Status: Acute Assessment and plan: No active issues. Current Visit: No Hospitalist: Subjective Interval history: No complaints or overnight events; tolerating food. Exam - Constitutional Vitals: Period Temp Pulse Resp BP Sys/Franklin Pulse Ox Last 24 Hr 98.1 F-99.1 F 60-73 16-20 107-131/60-71 94-100 General appearance: no acute distress - Head Head exam: Present: normocephalic, atraumatic - Eye Eye exam: Present: EOMI Pupils: Present: DENIZ - ENT ENT exam: Present: normal exam - Neck Neck exam: Present: normal inspection - Respiratory Respiratory exam: Present: clear to auscultation bilaterally. Absent: rhonchi, wheezes - Cardiovascular Cardiovascular exam: Present: regular rate and rhythm. Absent: gallop, rubs, systolic murmur - GI/Abdominal GI/Abdominal exam: Present: normal bowel sounds, soft. Absent: distended, firm , guarding, tenderness, rebound - Extremities Exam Extremities exam: Present: normal inspection. Absent: calf tenderness, edema Results - Labs CBC & BMP: 09/29/16 04:20 10/02/16 07:50 Lab Results: I have reviewed the past 24 hour labs Quality Measures - VTE Deep Vein Thrombosis/Pulmonary Embolism Present on Admission: No
[2016-10-02] MEDS ORDERED: POTASSIUM CHLORIDE RIDER 10 MEQ in PREMIX 1 EACH IV SCH (15:00)
[2016-10-02] MEDS: MAGNESIUM SULF RIDER 2 GM in PREMIX 1 EACH IV PRN ×2 (17:14→21:39)
[2016-10-02] MEDS ORDERED: POTASSIUM CHLORIDE RIDER 10 MEQ in PREMIX 1 EACH IV PRN (21:07)
[2016-10-03] MEDS: metroNIDAZOLE INJ 500 MG in PREMIX 1 EACH IV SCH ×5 (01:43→20:29)
[2016-10-03 06:19] LABS: Basophils % 0.3 % (0.0-0.8); Eosinophils # 0.1 10*3/uL (0.0-0.87); Eosinophils % 2.8 % (0.00-10.9); Hematocrit 31.5 VOL% (35.7-47.0); Hemoglobin 10.1 GM/DL (12.0-16.0); Lymphocytes # 1.1 10*3/uL (1.4-4.0); Lymphocytes % 38.3 % (21.3-54.2); Mean Corpuscular HGB Conc 32.1 GM/DL (32-36); Mean Corpuscular Hemoglobin 32 PG (27-34); Mean Corpuscular Volume 99.1 FL (87-102); Mean Platelet Volume 9.4 FL (9.6-12.0); Monocytes # 0.3 10*3/uL (0.11-0.8); Monocytes % 10.1 % (1.7-12.7); Neutrophils # 1.4 10*3/uL (1.4-7.4); Neutrophils % 48.5 % (38.7-73.9); Platelet Count 115 T/CUMM (130-400); Red Blood Count 3.18 MC/CUMM (3.8-5.5); Red Cell Distribution Width 14.8 % (9.3-17.3); White Blood Count 2.9 T/CUMM (4-12)
[2016-10-03 07:03] LABS: Calcium 7.4 MG/DL (8.5-10.1); Magnesium 2.3 MG/DL (1.8-2.4); Osmolality,Calculated 290.3 MOS/KG (273-304); Potassium 3.7 MMOL/L (3.5-5.1)
[2016-10-03] MEDS: PANTOPRAZOLE 40 MG VIAL IV SCH (08:48)
[2016-10-03] MEDS: clonazePAM 0.5 MG TABLET PO SCH ×2 (08:55→20:27)
[2016-10-03] MEDS: HEPARIN LOCK FLUSH 500 UNIT/5 ML SYRINGE IV SCH ×2 (08:55→20:33)
[2016-10-03] MEDS: POLYETHYLENE GLYCOL POWDER 17 GM PACK PO SCH (08:56)
[2016-10-03] MEDS: GABAPENTIN 600 MG TABLET PO SCH ×2 (08:56→20:27)
[2016-10-03] MEDS: amLODIPine 2.5 MG TABLET PO SCH (08:56)
[2016-10-03] MEDS: GABAPENTIN 300 MG CAPSULE PO SCH (11:44)
[2016-10-03] MEDS: DEXTROSE 5% NACL 0.45% 1,000 ML IV SCH (14:34)
--- NOTE | 2016-10-03 16:46 | Hospitalist Progress Note ---
Assessment and Plan - Time spent with patient Time spent with patient: Greater than 30 minutes (1) Nausea Status: Acute Assessment and plan: Endoscopy unremarkable. Improving. Current Visit: Yes (2) Gastric malignant neoplasm Status: Acute Assessment and plan: No active issues. Current Visit: No Hospitalist: Subjective Interval history: No complaints, she endorses being stronger. Exam - Constitutional Vitals: Period Temp Pulse Resp BP Sys/Franklin Pulse Ox Last 24 Hr 97.6 F-98.3 F 68-77 18-20 113-141/63-75 95-99 General appearance: no acute distress - Head Head exam: Present: normocephalic, atraumatic - Eye Eye exam: Present: EOMI Pupils: Present: DENIZ - ENT ENT exam: Present: normal exam - Neck Neck exam: Present: normal inspection - Respiratory Respiratory exam: Present: clear to auscultation bilaterally. Absent: rhonchi, wheezes - Cardiovascular Cardiovascular exam: Present: regular rate and rhythm. Absent: gallop, rubs, systolic murmur - GI/Abdominal GI/Abdominal exam: Present: normal bowel sounds, soft. Absent: distended, firm , guarding, tenderness, rebound - Extremities Exam Extremities exam: Present: normal inspection. Absent: calf tenderness, edema Results - Labs CBC & BMP: 10/03/16 06:06 10/03/16 06:06 Lab Results: I have reviewed the past 24 hour labs Quality Measures - VTE Deep Vein Thrombosis/Pulmonary Embolism Present on Admission: No
[2016-10-03] MEDS: PROMETHAZINE 25 MG/1 ML VIAL IM PRN (18:10)
[2016-10-03] MEDS: ONDANSETRON 4 MG/2 ML VIAL IV PRN (20:17)
[2016-10-04] MEDS: PROMETHAZINE 25 MG/1 ML VIAL IM PRN ×2 (00:49→07:56)
[2016-10-04] MEDS: metroNIDAZOLE INJ 500 MG in PREMIX 1 EACH IV SCH ×4 (02:35→21:38)
[2016-10-04] MEDS: PANTOPRAZOLE 40 MG VIAL IV SCH (07:59)
[2016-10-04] MEDS: HEPARIN LOCK FLUSH 500 UNIT/5 ML SYRINGE IV SCH ×2 (08:05→21:38)
[2016-10-04] MEDS: clonazePAM 0.5 MG TABLET PO SCH ×2 (08:05→21:38)
[2016-10-04] MEDS: amLODIPine 2.5 MG TABLET PO SCH (08:06)
[2016-10-04] MEDS: GABAPENTIN 600 MG TABLET PO SCH ×2 (08:06→21:38)
[2016-10-04] MEDS: POLYETHYLENE GLYCOL POWDER 17 GM PACK PO SCH (08:06)
[2016-10-04] MEDS: DEXTROSE 5% NACL 0.45% 1,000 ML IV SCH ×3 (10:13→22:05)
[2016-10-04] MEDS: GABAPENTIN 300 MG CAPSULE PO SCH (11:47)
--- NOTE | 2016-10-04 12:22 | Hospitalist Progress Note ---
Assessment and Plan - Time spent with patient Time spent with patient: Greater than 30 minutes (1) Nausea Status: Acute Assessment and plan: Resolved. Current Visit: Yes (2) Gastric malignant neoplasm Status: Acute Assessment and plan: No active issues. Current Visit: No Hospitalist: Subjective Interval history: No complaints this morning. No overnight events. Exam - Constitutional Vitals: Period Temp Pulse Resp BP Sys/Franklin Pulse Ox Last 24 Hr 97.8 F-99.0 F 63-78 16-20 117-147/65-77 95-99 General appearance: no acute distress - Head Head exam: Present: normocephalic, atraumatic - Eye Eye exam: Present: EOMI Pupils: Present: DENIZ - ENT ENT exam: Present: normal exam - Neck Neck exam: Present: normal inspection - Respiratory Respiratory exam: Present: clear to auscultation bilaterally. Absent: rhonchi, wheezes - Cardiovascular Cardiovascular exam: Present: regular rate and rhythm. Absent: gallop, rubs, systolic murmur - GI/Abdominal GI/Abdominal exam: Present: normal bowel sounds, soft. Absent: distended, firm , guarding, tenderness, rebound - Extremities Exam Extremities exam: Present: normal inspection. Absent: calf tenderness, edema Results - Labs CBC & BMP: 10/03/16 06:06 10/03/16 06:06 Lab Results: I have reviewed the past 24 hour labs Quality Measures - VTE Deep Vein Thrombosis/Pulmonary Embolism Present on Admission: No
[2016-10-04] MEDS: ACETAMINOPHEN 325 MG TABLET PO PRN (13:54)
[2016-10-04] MEDS: LACTOBACILLUS ACIDOPHILUS/BULGARICUS CHEW TABLET PO SCH ×2 (16:41→21:38)
[2016-10-05] MEDS: metroNIDAZOLE INJ 500 MG in PREMIX 1 EACH IV SCH ×4 (04:15→20:51)
[2016-10-05 05:14] LABS: Osmolality,Calculated 292.3 MOS/KG (273-304); Potassium 3.4 MMOL/L (3.5-5.1)
[2016-10-05 05:26] LABS: Basophils % 0.3 % (0.0-0.8); Eosinophils # 0.1 10*3/uL (0.0-0.87); Eosinophils % 2.4 % (0.00-10.9); Hematocrit 31.6 VOL% (35.7-47.0); Hemoglobin 10.1 GM/DL (12.0-16.0); Lymphocytes # 1.2 10*3/uL (1.4-4.0); Lymphocytes % 31.8 % (21.3-54.2); Mean Corpuscular Hemoglobin 32 PG (27-34); Mean Corpuscular Volume 100.3 FL (87-102); Mean Platelet Volume 10.7 FL (9.6-12.0); Monocytes # 0.3 10*3/uL (0.11-0.8); Monocytes % 7.9 % (1.7-12.7); Neutrophils # 2.2 10*3/uL (1.4-7.4); Neutrophils % 57.6 % (38.7-73.9); Platelet Count 110 T/CUMM (130-400); Red Blood Count 3.15 MC/CUMM (3.8-5.5); Red Cell Distribution Width 15.3 % (9.3-17.3); White Blood Count 3.8 T/CUMM (4-12)
[2016-10-05] MEDS: GABAPENTIN 600 MG TABLET PO SCH ×2 (09:09→20:51)
[2016-10-05] MEDS: PANTOPRAZOLE 40 MG VIAL IV SCH (09:09)
[2016-10-05] MEDS: amLODIPine 2.5 MG TABLET PO SCH (09:09)
[2016-10-05] MEDS: HEPARIN LOCK FLUSH 500 UNIT/5 ML SYRINGE IV SCH ×2 (09:09→20:51)
[2016-10-05] MEDS: POLYETHYLENE GLYCOL POWDER 17 GM PACK PO SCH (09:09)
[2016-10-05] MEDS: clonazePAM 0.5 MG TABLET PO SCH ×2 (09:09→20:51)
[2016-10-05] MEDS: LACTOBACILLUS ACIDOPHILUS/BULGARICUS CHEW TABLET PO SCH ×2 (09:50→16:01)
[2016-10-05] MEDS: DEXTROSE 5% NACL 0.45% 1,000 ML IV SCH (11:00)
[2016-10-05] MEDS: ACETAMINOPHEN 325 MG TABLET PO PRN (12:07)
[2016-10-05] MEDS: GABAPENTIN 300 MG CAPSULE PO SCH (12:08)
--- NOTE | 2016-10-05 13:53 | Hospitalist Progress Note ---
Assessment and Plan - Time spent with patient Time spent with patient: Greater than 30 minutes (1) Nausea Status: Acute Assessment and plan: Resolved. Current Visit: Yes (2) Gastric malignant neoplasm Status: Acute Assessment and plan: No active issues. Current Visit: No Hospitalist: Subjective Interval history: No complaints or overnight events. Exam - Constitutional Vitals: Period Temp Pulse Resp BP Sys/Franklin Pulse Ox Last 24 Hr 97.8 F-98.9 F 66-70 18-20 100-125/58-70 92-99 General appearance: no acute distress - Head Head exam: Present: normocephalic, atraumatic - Eye Eye exam: Present: EOMI Pupils: Present: DENIZ - ENT ENT exam: Present: normal exam - Neck Neck exam: Present: normal inspection - Respiratory Respiratory exam: Present: clear to auscultation bilaterally. Absent: rhonchi, wheezes - Cardiovascular Cardiovascular exam: Present: regular rate and rhythm. Absent: gallop, rubs, systolic murmur - GI/Abdominal GI/Abdominal exam: Present: normal bowel sounds, soft. Absent: distended, firm , guarding, tenderness, rebound - Extremities Exam Extremities exam: Present: normal inspection. Absent: calf tenderness, edema Results - Labs CBC & BMP: 10/05/16 04:24 10/05/16 04:24 Lab Results: I have reviewed the past 24 hour labs Quality Measures - VTE Deep Vein Thrombosis/Pulmonary Embolism Present on Admission: No
[2016-10-06] MEDS: LACTOBACILLUS ACIDOPHILUS/BULGARICUS CHEW TABLET PO SCH ×4 (00:16→20:14)
[2016-10-06] MEDS: POTASSIUM CHLORIDE RIDER 20 MEQ in PREMIX 1 EACH IV PRN ×2 (00:17→09:44)
[2016-10-06] MEDS: DEXTROSE 5% NACL 0.45% 1,000 ML IV SCH ×3 (00:22→20:15)
[2016-10-06] MEDS: ACETAMINOPHEN 325 MG TABLET PO PRN ×3 (02:01→19:05)
[2016-10-06] MEDS: metroNIDAZOLE INJ 500 MG in PREMIX 1 EACH IV SCH ×4 (02:03→20:13)
[2016-10-06 06:57] LABS: Basophils % 0.3 % (0.0-0.8); Eosinophils # 0.1 10*3/uL (0.0-0.87); Eosinophils % 1.5 % (0.00-10.9); Hematocrit 29.2 VOL% (35.7-47.0); Hemoglobin 9.6 GM/DL (12.0-16.0); Immature Granulocytes % 0.3 %; Immature Granulocytes Absolute 0.01 #; Lymphocytes # 1.2 10*3/uL (1.4-4.0); Lymphocytes % 35.6 % (21.3-54.2); Mean Corpuscular HGB Conc 32.9 GM/DL (32-36); Mean Corpuscular Hemoglobin 33 PG (27-34); Monocytes # 0.3 10*3/uL (0.11-0.8); Monocytes % 7.9 % (1.7-12.7); Neutrophils # 1.8 10*3/uL (1.4-7.4); Neutrophils % 54.4 % (38.7-73.9); Platelet Count 140 T/CUMM (130-400); Red Blood Count 2.92 MC/CUMM (3.8-5.5); Red Cell Distribution Width 15.3 % (9.3-17.3); White Blood Count 3.3 T/CUMM (4-12)
[2016-10-06 07:44] LABS: Calcium 7.2 MG/DL (8.5-10.1); Osmolality,Calculated 290.3 MOS/KG (273-304); Potassium 3.9 MMOL/L (3.5-5.1)
[2016-10-06] MEDS: GABAPENTIN 600 MG TABLET PO SCH ×2 (08:32→20:14)
[2016-10-06] MEDS: PANTOPRAZOLE 40 MG VIAL IV SCH (08:32)
[2016-10-06] MEDS: POLYETHYLENE GLYCOL POWDER 17 GM PACK PO SCH (08:32)
[2016-10-06] MEDS: clonazePAM 0.5 MG TABLET PO SCH ×2 (08:32→20:14)
[2016-10-06] MEDS: HEPARIN LOCK FLUSH 500 UNIT/5 ML SYRINGE IV SCH ×2 (08:32→20:14)
[2016-10-06] MEDS: amLODIPine 2.5 MG TABLET PO SCH (08:32)
[2016-10-06] MEDS: GABAPENTIN 300 MG CAPSULE PO SCH (11:48)
--- NOTE | 2016-10-06 14:39 | Hospitalist Progress Note ---
Assessment and Plan - Time spent with patient Time spent with patient: Greater than 30 minutes (1) Nausea Status: Acute Assessment and plan: Resolved. Current Visit: Yes Hospitalist: Subjective Interval history: No new complaints. Exam - Constitutional Vitals: Period Temp Pulse Resp BP Sys/Franklin Pulse Ox Last 24 Hr 97.7 F-98.4 F 66-78 16-20 105-112/50-62 95-99 General appearance: no acute distress - Head Head exam: Present: normocephalic, atraumatic - Eye Eye exam: Present: EOMI Pupils: Present: DENIZ - ENT ENT exam: Present: normal exam - Neck Neck exam: Present: normal inspection - Respiratory Respiratory exam: Present: clear to auscultation bilaterally. Absent: rhonchi, wheezes - Cardiovascular Cardiovascular exam: Present: regular rate and rhythm. Absent: gallop, rubs, systolic murmur - GI/Abdominal GI/Abdominal exam: Present: normal bowel sounds, soft. Absent: distended, firm , guarding, tenderness, rebound - Extremities Exam Extremities exam: Present: normal inspection. Absent: calf tenderness, edema Results - Labs CBC & BMP: 10/06/16 06:09 10/06/16 05:14 Lab Results: I have reviewed the past 24 hour labs Quality Measures - VTE Deep Vein Thrombosis/Pulmonary Embolism Present on Admission: No
[2016-10-07] MEDS: ACETAMINOPHEN 325 MG TABLET PO PRN ×3 (01:03→23:11)
[2016-10-07] MEDS: metroNIDAZOLE INJ 500 MG in PREMIX 1 EACH IV SCH ×4 (02:39→20:15)
[2016-10-07] MEDS: clonazePAM 0.5 MG TABLET PO SCH ×2 (09:07→20:15)
[2016-10-07] MEDS: LACTOBACILLUS ACIDOPHILUS/BULGARICUS CHEW TABLET PO SCH ×3 (09:07→20:15)
[2016-10-07] MEDS: POLYETHYLENE GLYCOL POWDER 17 GM PACK PO SCH (09:07)
[2016-10-07] MEDS: GABAPENTIN 600 MG TABLET PO SCH ×2 (09:07→20:15)
[2016-10-07] MEDS: amLODIPine 2.5 MG TABLET PO SCH (09:07)
[2016-10-07] MEDS: HEPARIN LOCK FLUSH 500 UNIT/5 ML SYRINGE IV SCH ×2 (09:07→20:16)
[2016-10-07] MEDS: PANTOPRAZOLE 40 MG VIAL IV SCH (09:07)
[2016-10-07] MEDS: DEXTROSE 5% NACL 0.45% 1,000 ML IV SCH ×2 (09:08→17:39)
--- NOTE | 2016-10-07 10:33 | Hospitalist Progress Note ---
Assessment and Plan - Time spent with patient Time spent with patient: Greater than 30 minutes (1) Generalized weakness Status: Acute Assessment and plan: Continue to wait for NH/SB placement. Current Visit: No Hospitalist: Subjective Interval history: No complaints or overnight events. No nausea. Exam - Constitutional Vitals: Period Temp Pulse Resp BP Sys/Franklin Pulse Ox Last 24 Hr 97.8 F-98.6 F 65-78 16-20 102-146/50-70 95-98 General appearance: no acute distress - Head Head exam: Present: normocephalic, atraumatic - Eye Eye exam: Present: EOMI Pupils: Present: DENIZ - ENT ENT exam: Present: normal exam - Neck Neck exam: Present: normal inspection - Respiratory Respiratory exam: Present: clear to auscultation bilaterally. Absent: rhonchi, wheezes - Cardiovascular Cardiovascular exam: Present: regular rate and rhythm. Absent: gallop, rubs, systolic murmur - GI/Abdominal GI/Abdominal exam: Present: normal bowel sounds, soft. Absent: distended, firm , guarding, tenderness, rebound - Extremities Exam Extremities exam: Present: normal inspection. Absent: calf tenderness, edema Results - Labs CBC & BMP: 10/06/16 06:09 10/06/16 05:14 Lab Results: I have reviewed the past 24 hour labs Quality Measures - VTE Deep Vein Thrombosis/Pulmonary Embolism Present on Admission: No
[2016-10-07] MEDS: GABAPENTIN 300 MG CAPSULE PO SCH ×2 (13:42→14:00)
[2016-10-08] MEDS: metroNIDAZOLE INJ 500 MG in PREMIX 1 EACH IV SCH ×4 (02:35→20:08)
[2016-10-08] MEDS: DEXTROSE 5% NACL 0.45% 1,000 ML IV SCH ×2 (04:05→14:00)
[2016-10-08] MEDS: ACETAMINOPHEN 325 MG TABLET PO PRN ×2 (08:05→17:08)
[2016-10-08] MEDS: LACTOBACILLUS ACIDOPHILUS/BULGARICUS CHEW TABLET PO SCH ×3 (09:06→20:10)
[2016-10-08] MEDS: amLODIPine 2.5 MG TABLET PO SCH (09:06)
[2016-10-08] MEDS: GABAPENTIN 600 MG TABLET PO SCH ×2 (09:06→20:08)
[2016-10-08] MEDS: HEPARIN LOCK FLUSH 500 UNIT/5 ML SYRINGE IV SCH ×2 (09:06→20:10)
[2016-10-08] MEDS: clonazePAM 0.5 MG TABLET PO SCH ×2 (09:06→20:08)
[2016-10-08] MEDS: PANTOPRAZOLE 40 MG VIAL IV SCH (09:07)
[2016-10-08] MEDS: POLYETHYLENE GLYCOL POWDER 17 GM PACK PO SCH (09:07)
--- NOTE | 2016-10-08 12:25 | Hospitalist Progress Note ---
Assessment and Plan - Time spent with patient Time spent with patient: Greater than 30 minutes (1) Generalized weakness Status: Acute Assessment and plan: Continue to wait for NH/SB placement. Current Visit: No Hospitalist: Subjective Interval history: No complaints or overnight events. No nausea. Exam - Constitutional Vitals: Period Temp Pulse Resp BP Sys/Franklin Pulse Ox Last 24 Hr 98.0 F-98.5 F 67-82 16-20 121-147/57-77 92-99 General appearance: no acute distress - Head Head exam: Present: normocephalic, atraumatic - Eye Eye exam: Present: EOMI Pupils: Present: DENIZ - ENT ENT exam: Present: normal exam - Neck Neck exam: Present: normal inspection - Respiratory Respiratory exam: Present: clear to auscultation bilaterally. Absent: rhonchi, wheezes - Cardiovascular Cardiovascular exam: Present: regular rate and rhythm. Absent: gallop, rubs, systolic murmur - GI/Abdominal GI/Abdominal exam: Present: normal bowel sounds, soft. Absent: distended, firm , guarding, tenderness, rebound - Extremities Exam Extremities exam: Present: normal inspection. Absent: calf tenderness, edema Results - Labs CBC & BMP: 10/06/16 06:09 10/06/16 05:14 Lab Results: I have reviewed the past 24 hour labs Quality Measures - VTE Deep Vein Thrombosis/Pulmonary Embolism Present on Admission: No
[2016-10-08] MEDS: GABAPENTIN 300 MG CAPSULE PO SCH (12:50)
[2016-10-09] MEDS: ACETAMINOPHEN 325 MG TABLET PO PRN (00:21)
[2016-10-09] MEDS: DEXTROSE 5% NACL 0.45% 1,000 ML IV SCH (00:21)
[2016-10-09] MEDS: metroNIDAZOLE INJ 500 MG in PREMIX 1 EACH IV SCH ×2 (02:08→10:01)
[2016-10-09] MEDS: PANTOPRAZOLE 40 MG VIAL IV SCH (09:58)
[2016-10-09] MEDS: amLODIPine 2.5 MG TABLET PO SCH (09:59)
[2016-10-09] MEDS: HEPARIN LOCK FLUSH 500 UNIT/5 ML SYRINGE IV SCH (09:59)
[2016-10-09] MEDS: GABAPENTIN 600 MG TABLET PO SCH (10:00)
[2016-10-09] MEDS: POLYETHYLENE GLYCOL POWDER 17 GM PACK PO SCH (10:01)
[2016-10-09] MEDS: LACTOBACILLUS ACIDOPHILUS/BULGARICUS CHEW TABLET PO SCH (10:11)
[2016-10-09] MEDS ORDERED: clonazePAM 0.5 MG TABLET PO SCH (10:30)
[2016-10-09] MEDS: GABAPENTIN 300 MG CAPSULE PO SCH (12:09)
--- NOTE | 2016-10-09 13:09 | Discharge Summary ---
Hospital Course - Hospital Course Hospital Course: Ms Torres was admitted for evaluation of nausea, vomiting, diarrhea and electrolyte derangements. She was initiated on IV antibiotics for potential bacterial gastroenteritis. Her electrolytes were corrected, and GI was consulted who performed an EGD. The EGD was unremarkable. Microbiology of the stools were unremarkable. She was initiated on probiotics. She was accepted to a NH and by discharge had met maximum benefit of hospitalization. I spent 33 minutes coordinating this discharge. - Time spent with patient Time with patient DS: Greater than 30 minutes Diagnosis - Discharge Diagnosis (1) Generalized weakness Status: Acute Discharge Plan - Discharge Data Disposition: Disch To Home/Self Care Condition at Discharge: Stable Discharge Diet: advance to your usual diet Activity: resume usual activities as tolerated Hygiene: no restrictions - Discharge Medications New Saccharomyces Boulardii [Florastor] 250 mg PO DAILY #30 capsule Lactobacillus Acidoph/Bulgar [Lactinex Chew Tab] 3 tablet PO TID tablet Continue Famotidine Tab [Pepcid Tab] 40 mg PO BEDTIME Potassium Chloride 16 meq PO DAILY Lubiprostone [Amitiza] 8 mcg PO BID W/MEALS Lisinopril/Hydrochlorothiazide [Lisinopril-Hctz 10-12.5 mg Tab] 1 each PO DAILY clonazePAM [Clonazepam] 1 mg PO BID amLODIPine [Norvasc] 2.5 mg PO DAILY Pantoprazole Tab [Protonix Tab] 40 mg PO DAILY Gabapentin 600 mg PO BID Gabapentin 300 mg PO DAILY W/LUNCH - Follow Up or Referral - Forms/Instructions Exam - Constitutional Vitals: Period Temp Pulse Resp BP Sys/[place] Pulse Ox Last 24 Hr 96.1 F-99.1 F 76-86 20-20 121-154/62-78 96-99 General appearance: normal weight, no acute distress - Head Head exam: Present: normal inspection, normocephalic, atraumatic - Eye Eye exam: Present: EOMI Pupils: Present: DENIZ - ENT ENT exam: Present: normal exam - Neck Neck exam: Present: normal inspection - Respiratory Respiratory exam: Present: clear to auscultation bilaterally. Absent: accessory muscle use, prolonged expiratory phase, wheezes - Cardiovascular Cardiovascular exam: Present: regular rate and rhythm. Absent: bradycardia, irregular rhythm, systolic murmur - GI/Abdominal GI/Abdominal exam: Present: normal bowel sounds. Absent: ascites, hypoactive bowel sounds, tenderness - Extremities Exam Extremities exam: Present: normal inspection DS: Provider Date of admission: 09/28/16 13:00 Primary care physician: . No PCP Attending physician on admission: Danay Friend MD Consults: 09/28/16 13:34 Consult to Case Mgmt/Social Srvs [CONS] Routine Reason for Case Mgmt/Social Srvs: Discharge Planning Swingbed/SNF/[facility] Consult to Physician [CONS] Routine Comment: Consulting Provider: Wilfred Brooks When should Consulting Provider be notified: Now Person Notified: JING Date Notified: 09/28/16 Time Notified: 15:06 09/29/16 13:17 Consult to Physician [CONS] Routine Comment: nausea and vomiting Consulting Provider: Eren Ochoa Consult to Specialist Group: Gastroenterology When should Consulting Provider be notified: Now Person Notified: noe Date Notified: 09/29/16 Time Notified: 13:59 09/30/16 07:48 Consult to Occupational Therapy [CONS] Routine Reason for Occupational Therapy: Evaluate and Treat Consult to Physical Therapy [CONS] Routine Reason for Physical Therapy: Evaluate and Treat Discharging clinician: Danay Friend MD Expected date of discharge: 10/09/16
[2016-10-09 15:11] VITALS: BP 155/86
== END 2016-10-09 14:45 | DRG 640 ==
LOC: N.ED 09:39 → N.EDINP 13:00 → N.2E 14:02
PROVIDERS: ADMIT Internal Medicine; ATTEND Internal Medicine